=== PATIENT | female | born 1985 | race Caucasian/White ===

== ENCOUNTER 2019-11-18 15:56 | Inpatient (IN) | payer OTHER ==
[~2019-11-18] VITALS: Ht 167.6 cm; Wt 75.3 kg
[~2019-11-18 15:56] MED LIST: AMITRIPTYLINE H10 M1; CELEXA 10 MG TA10 M1; CLONAZEPAM 1 MG1 M1 PO; CYMBALTA60 MG PO; FIORICET 50-301 EACH PO; FLAGYL500 MG PO; FLEXERIL PO; KLONOPIN; LYRICA 75 MG CA75 MG PO; MEDROL DOSPAK21 TA1 PO; NORCO 5-325 TA1 EACH PO; ONDANSETRON HCL4 M2 PO; PAXIL10 MG PO; PERCOCET 5-3251 EACH PO; RIZATRIPTAN10 MG PO; TOBRAMYCIN SULFA5 ML OPHTHALMIC; TRAMADOL 50 MG50 MG PO; WELLBUTRIN SR150 MG PO; XANAX 0.25 MG0.25 MG PO
[2019-11-18 16:01] VITALS: BP 114/79
[2019-11-18] MEDS ORDERED: ADDERALL 20 MG20 MG PO (16:06)
[2019-11-18] MEDS ORDERED: REQUIP 0.25 M0.25 M1 PO (16:07)
[2019-11-18] MEDS ORDERED: ZOLOFT100 MG PO (16:07)
[2019-11-18 16:26] LABS: NUCLEATED RBCS 0 /100WBC
[2019-11-18 16:27] LABS: HEMATOCRIT 38.6 % (37.0-47.0); HEMOGLOBIN 13.6 gm/dL (12.0-15.0); MCH 31.6 pg (26.0-34.0); MCHC 35.3 g/dL (28.0-37.0); MCV 89.6 fL (80.0-100.0); MPV 8.7 fl. (7.2-11.1); PLATELET COUNT* 282 thou/uL (150-400); RBC 4.31 mil/uL (4.20-5.00); RDW-CV 13.7 % (10.5-14.5); WBC 22.7 thou/uL (4.0-11.0)
[2019-11-18 16:33] LABS: CALCIUM 9.3 mg/dL (8.5-10.1); CREATININE 0.8 mg/dL (0.6-1.3); POTASSIUM 3.7 mmol/L (3.5-5.1)
[2019-11-18 16:37] LABS: TOTAL BILIRUBIN 0.3 mg/dL (<0.1-1.0); TOTAL PROTEIN 7.6 g/dL (6.4-8.2)
[2019-11-18 16:44] LABS: ABSOLUTE EOSINOPHILS 0.2 thou/uL (0.0-0.7); ABSOLUTE LYMPHOCYTES 2.5 thou/uL (0.8-5.3); ABSOLUTE MONOCYTES 0.7 thou/uL (0.0-1.2); ABSOLUTE NEUTROPHILS 19.3 thou/uL (1.6-8.1); PLATELET ESTIMATE ADEQUATE
[2019-11-18 17:20] LABS: APTT 26.9 Seconds (25.0-31.3)
--- NOTE | 2019-11-18 18:02 | NUR ---
CTA COMPLEATED PATIENT RETURNED TO ED
[2019-11-18] MEDS ORDERED: NORCO 5-325 TA1 EAC1 PO (19:18)
[2019-11-18] MEDS ORDERED: PROAIR HFA8.5 GM INH (19:18)
[2019-11-18] MEDS ORDERED: LEVAQUIN 500 M500 M2 PO (19:18)
[2019-11-18] MEDS ORDERED: MEDROLDOSEPACK PO (19:18)
[2019-11-18 20:28] VITALS: BP 124/82
[2019-11-19] VITALS: BP 113/73
[2019-11-19 04:00] VITALS: BP 112/68
[2019-11-19 05:04] LABS: ABSOLUTE LYMPHOCYTES 0.4 thou/uL (0.8-5.3); ABSOLUTE MONOCYTES 0.1 thou/uL (0.0-1.2); ABSOLUTE NEUTROPHILS 18.6 thou/uL (1.6-8.1); HEMATOCRIT 37.2 % (37.0-47.0); HEMOGLOBIN 12.9 gm/dL (12.0-15.0); MCH 31.1 pg (26.0-34.0); MCHC 34.7 g/dL (28.0-37.0); MCV 89.8 fL (80.0-100.0); MONOCYTES 0.6 %; MPV 8.4 fl. (7.2-11.1); NUCLEATED RBCS 0 /100WBC; PLATELET COUNT* 253 thou/uL (150-400); POLYS 97.4 %; RBC 4.14 mil/uL (4.20-5.00); RDW-CV 13.9 % (10.5-14.5); WBC 19.1 thou/uL (4.0-11.0)
[2019-11-19 05:14] LABS: CALCIUM 9.3 mg/dL (8.5-10.1); CREATININE 0.9 mg/dL (0.6-1.3); POTASSIUM 4.1 mmol/L (3.5-5.1)
[2019-11-19 08:15] VITALS: BP 121/73
[2019-11-19 11:28] VITALS: BP 118/80
[2019-11-19 11:37] VITALS: BP 118/80
[2019-11-19] MEDS ORDERED: PREDNISONE 10 M10 M1 PO (11:53)
[2019-11-19] MEDS ORDERED: AUGMENTIN 875-1 EACH PO (11:54)
[2019-11-19] MEDS ORDERED: PROTONIX40 M1 PO (11:56)
[2019-11-19] MEDS ORDERED: VENTOLIN HFA INH8 GM INH (11:56)
[2019-11-19 12:33] VITALS: BP 118/80
--- NOTE | 2019-11-19 12:33 | NUR ---
PATIET ALERT AND ORIENTED X4. PATIENT AMBULATING IN ROOM WITHOUT DIFFICULTY. ALL SAFETY MEASURES MAINTAINED. IV DISCONTINUED. DISCHARGE PAPERWORK AND PRESCRIPTIONS GIVEN TO PATIENT. PATIENT DENIES FURTHER NEEDS AND QUESTIONS AT THIS TIME.
--- NOTE | 2019-11-19 12:54 | EKG ---
[place] [address] ELECTROCARDIOGRAM REPORT Name: TAE CLEMONS Room: [address] ADM IN .R.#: [id number] Admission: 11/18/19 Attend Phys: Ari Carrasquillo MD Discharge: Date of : 83 Report #: [id number] THIS REPORT FOR: //name// [facility] ED Test Date: 2019-11-18 Test Time: 16:13:41 Pat Name: TAE CLEMONS Department: Room: [address] Gender: F Computed Tomography Scanner Operator: MS : 1985 Requested By: Radhames Pina Order Number: [id number] Tony MD: Nadeem Fox Measurements Intervals [place] Rate: 100 P: 68 VT: 143 QRS: 74 QRSD: 90 T: 53 QT: 328 QTc: 423 Interpretive Statements Sinus tachycardia Borderline T abnormalities, anterior leads Baseline wander in lead(s) V2 Compared to ECG 08/08/2014 15:07:39 Sinus rhythm no longer present Electronically Signed On 11-19-2019 12:54:20 [employer] by Nadeem Fox [email or web address] <ELECTRONICALLY SIGNED> By: Nadeem Fox MD, FACC 11/19/19 1254 [id number] 1613 Nadeem Fox MD, FAC /EPI
== END 2019-11-19 12:30 | disposition home or self-care (01) | DRG 195 ==
LOC: M.ERS 15:56 → M.TBA-ER 19:42 → M.2W 20:29
PROVIDERS: Physician Assistant; ADMIT Internal Medicine
DX: J18.9 Pneumonia, unspecified organism (principal); G43.909 Migraine, unspecified, not intractable, without status migrainosus; K58.9 Irritable bowel syndrome, unspecified; F41.9 Anxiety disorder, unspecified; F32.9 Major depressive disorder, single episode, unspecified; M79.7 Fibromyalgia; Z79.899 Other long term (current) drug therapy; Z88.7 Allergy status to serum and vaccine; Z87.891 Personal history of nicotine dependence; Z71.6 Tobacco abuse counseling